=== PATIENT | male | born 1960 | race Caucasian/White ===

== ENCOUNTER 2017-07-20 07:51 | Emergency (ER) | payer OTHER ==
[2017-07-20 08:00] VITALS: BP 129/53
--- NOTE | 2017-07-20 09:07 | UC ---
Respiratory Complaint HPI - HPI Summary HPI Summary: 2-3 WEEKS OF COUGH, CONGESTION, ST, SINUS PRESSURE AND ARNOLD. PT DENIES FEVER. NO EAR PAIN, N/V/D. - History of Current Complaint Chief Complaint: UCGeneralIllness Stated Complaint: COUGH,ST,COLD Time Seen by Provider: 07/20/17 08:54 Hx Obtained From: Patient Onset/Duration: Gradual Onset, Lasting Weeks, Still Present Timing: Constant Severity Initially: Moderate Severity Currently: Moderate Pain Intensity: 5 Pain Scale Used: 0-10 Numeric Character: Cough: Productive Aggravating Factors: Nothing Alleviating Factors: Nothing Associated Signs And Symptoms: Positive: URI, Nasal Congestion, Sinus Discomfort - Allergies/Home Medications Allergies/Adverse Reactions: Allergies Allergy/AdvReac Type Severity Reaction Status Date / Time Celecoxib [From Celebrex] Allergy Intermediate Rash And Verified 07/20/17 08:01 Itching PMH/Surg Hx/FS Hx/Imm Hx Previously Healthy: Yes - Surgical History Surgical History: Yes Surgery Procedure, Year, and Place: ACL REPLACEMENT ON R KNEE 2009,. Rt CLAVICLE ORIF WITH PLATE -FRACTURE. [facility] 2013. RIGHT WRIST CARPAL TUNNEL. - Family History Known Family History: Negative: Hypertension - Social History Alcohol Use: Rare Alcohol Amount: 2 BEERS PER WEEK Substance Use Type: None Smoking Status (MU): Never Smoked Tobacco - Immunization History Most Recent Influenza Vaccination: NONE Most Recent Tetanus Shot: UNKNOWN Most Recent Pneumonia Vaccination: NONE Review of Systems Constitutional: Fatigue ENT: Sore Throat, Nasal Discharge Respiratory: Cough Cardiovascular: Negative Gastrointestinal: Negative Neurological: Headache All Other Systems Reviewed And Are Negative: Yes Physical Exam Triage Information Reviewed: Yes Appearance: Well-Appearing, No Pain Distress, Well-Nourished Vital Signs: Initial Vital Signs Temp 97.7 F 07/20/17 07:54 Pulse 68 07/20/17 07:54 Resp 16 07/20/17 07:54 BP 129/53 07/20/17 07:54 Pulse Ox 100 07/20/17 07:54 Vital Signs Reviewed: Yes Eyes: Positive: Conjunctiva Clear ENT: Positive: Hearing grossly normal, Pharynx normal, Nasal congestion, TMs normal Neck: Positive: Supple, Nontender, No Lymphadenopathy Respiratory Exam: Normal Cardiovascular Exam: Normal Abdomen Description: Positive: Soft Musculoskeletal: Positive: No Edema Neurological: Positive: Alert Psychological: Positive: Age Appropriate Behavior Skin: Negative: rashes UC Diagnostic Evaluation - Laboratory O2 Sat by Pulse Oximetry: 100 Respiratory Course/Dx - Differential Dx/Diagnosis Provider Diagnoses: ACUTE SINUSITIS Discharge - Discharge Plan Condition: Stable Disposition: HOME Prescriptions: Amoxicillin/Clavulanate TAB* [Augmentin TAB 875*] 875 mg PO BID #20 tab predniSONE TAB* [Deltasone TAB*] 40 mg PO DAILY #10 tab Patient Education Materials: Sinusitis (ED) Referrals: Arun Moreno MD [Primary Care Provider] - If Needed Additional Instructions: YOUR SYMPTOMS MAY BE VIRALLY MEDIATED BUT GIVEN THE LENGTH OF TIME YOU HAVE BEEN ILL WE WILL COVER YOU WITH ANTIBIOTICS. BE SURE TO TAKE IT FOR THE FULL COURSE. REST, HYDRATE, OTC MEDS NEEDED. WILL ALSO TREAT WITH PREDNISONE TO HELP WITH AIRWAY INFLAMMATION. SEEK FOLLOW-UP WITH YOUR PCP IF YOU ARE NOT IMPROVING OVER THE NEXT 1-2 WEEKS. TRY OTC AFRIN FOR NASAL CONGESTION. OKAY TO USE 2-3 SPRAYS IN EACH NOSTRIL UP TO 2 TIMES DAILY. DO NOT USE FOR MORE THAN 3-4 CONSECUTIVE DAYS TO PREVENT DEVELOPING REBOUND CONGESTION.
== END 2017-07-20 09:16 | disposition home or self-care (01) ==
LOC: UCEAST 07:51
DX: J01.90 Acute sinusitis, unspecified (principal); Z88.8 Allergy status to other drugs, medicaments and biological substances
CPT/HCPCS: 99212; G0463

== ENCOUNTER 2019-05-18 10:33 | Emergency (ER) | payer OTHER ==
[2019-05-18 10:49] VITALS: BP 151/76
--- NOTE | 2019-05-18 11:19 | UC ---
Back Pain HPI - HPI Summary HPI Summary: 58-year-old male presents with complaints of left lower back pain. States that 2 weeks ago he was installing some carpet and later that evening he noticed some left lower back pain that radiated down into his buttocks. States pain lasted for a few days and then improved. 5 days ago he was attempting to climb a ladder to do some painting and he slipped off the bottom rung and fell backwards landing on his butt. He noted pain in his left lower back immediately after the injury and states that it has been persistent since that time. Pain is now occasionally radiating down into his hip and lateral thigh. He has been taking ibuprofen with little relief in his symptoms. Denies weakness, numbness, tingling of the lower extremities, or loss of bowel or bladder control. - History of Current Complaint Chief Complaint: UCBackPain Stated Complaint: BACK PAIN Time Seen by Provider: 05/18/19 10:56 Hx Obtained From: Patient Pain Intensity: 7 - Allergies/Home Medications Allergies/Adverse Reactions: Allergies Allergy/AdvReac Type Severity Reaction Status Date / Time celecoxib [From Celebrex] Allergy Rash And Verified 05/18/19 10:49 Itching Home Medications: Home Medications Ibuprofen 800 mg PO PRN 05/18/19 [History] PMH/Surg Hx/FS Hx/Imm Hx Previously Healthy: Yes - Denies significant PMH - Surgical History Surgical History: Yes Surgery Procedure, Year, and Place: ACL REPLACEMENT ON R KNEE 2009,. Rt CLAVICLE ORIF WITH PLATE -FRACTURE. [facility] 2012. RIGHT WRIST CARPAL TUNNEL. RIGHT ANKLE - Family History Known Family History: Positive: Non-Contributory - Social History Occupation: Employed Full-time Lives: With Family Alcohol Use: Occasionally Alcohol Amount: 2 BEERS PER WEEK Substance Use Type: None Smoking Status (MU): Never Smoked Tobacco - Immunization History Most Recent Influenza Vaccination: NONE Most Recent Tetanus Shot: UNKNOWN Most Recent Pneumonia Vaccination: NONE Review of Systems All Other Systems Reviewed And Are Negative: Yes Constitutional: Negative: Fever, Chills Respiratory: Positive: Negative Cardiovascular: Positive: Negative Gastrointestinal: Positive: Negative Genitourinary: Positive: Negative Motor: Negative: Weakness Neurovascular: Negative: Decreased Sensation Musculoskeletal: Positive: Other: - See HPI Neurological: Negative: Weakness, Paresthesia, Numbness Is Patient Immunocompromised?: No Physical Exam - Summary Physical Exam Summary: GENERAL APPEARANCE: Well developed, well nourished, alert and cooperative, and appears to be in no acute distress. CARDIAC: Normal S1 and S2. No S3, S4 or murmurs. Rhythm is regular. There is no peripheral edema, cyanosis or pallor. Extremities are warm and well perfused. Capillary refill is less than 2 seconds. Peripheral pulses intact. LUNGS: Clear to auscultation without rales, rhonchi, wheezing or diminished breath sounds. ABDOMEN: Positive bowel sounds. Soft, nondistended, nontender. No guarding or rebound. No masses or hepatosplenomegally. MUSKULOSKELETAL: ROM intact to all extremities. No joint erythema or tenderness. Normal muscular development. Normal gait. BACK: Examination of the spine reveals no mid spinal deformity or tenderness, No soft tissue tenderness, or muscular spasm. NEUROLOGICAL: Strength and sensation symmetric to lower extremities. SKIN: Skin normal color, texture and turgor with no lesions or eruptions. Triage Information Reviewed: Yes Vital Signs: Initial Vital Signs Temp 98.6 F 05/18/19 10:41 Pulse 72 05/18/19 10:41 Resp 18 05/18/19 10:41 BP 151/76 05/18/19 10:41 Pulse Ox 99 05/18/19 10:41 Vital Signs Reviewed: Yes Images Head: 1 - Superficial 2 cm linear scalp laceration within the hairline Diagnostics - Radiology No standard instances Radiology Interpretation Completed By: Radiologist Summary of Radiographic Findings: Order Information: SP LUMBARSACRAL 4+ VWS. COMPARISON: Comparison is made with a prior MRI of the lumbar spine from October 25, 2015. TECHNIQUE: 5 views of the lumbar spine were obtained including lateral, oblique, AP and a coned-down lateral view of the lumbar sacral junction. FINDINGS: The vertebra are in normal alignment. No fracture is seen. There is mild diffuse degenerative disc disease. IMPRESSION: NO EVIDENCE FOR FRACTURE. Back Pain Course/Dx - Course Course Of Treatment: 58-year-old male presents with complaints of left lower back pain. States that 2 weeks ago he was installing some carpet and later that evening he noticed some left lower back pain that radiated down into his buttocks. States pain lasted for a few days and then improved. 5 days ago he was attempting to climb a ladder to do some painting and he slipped off the bottom rung and fell backwards landing on his butt. He noted pain in his left lower back immediately after the injury and states that it has been persistent since that time. Pain is now occasionally radiating down into his hip and lateral thigh. He has been taking ibuprofen with little relief in his symptoms. Denies weakness, numbness, tingling of the lower extremities, or loss of bowel or bladder control. Afebrile. Hypertensive otherwise vital signs stable. On exam patient had no midline or paraspinous soft tissue tenderness with palpation. Strength and sensation were intact to the lower extremities. Gait was normal. Remainder of exam was unremarkable. Because of the history of fall with axilla injury a lumbosacral x-ray was obtained and no acute fracture was identified. Results were reviewed with the patient. Recommending conservative treatment for low back pain including NSAIDs, cyclobenzaprine every 8 hours when necessary, and cold and/or heat therapy. He is to follow-up with his primary care provider in 5-7 days if symptoms are not improving. Anticipatory guidance and warning symptoms were reviewed with the patient. Verbalizes understanding and agrees with plan of care. - Differential Dx/Diagnosis Differential Diagnosis/HQI/PQRI: Herniated Disc, Strain Provider Diagnosis: Head injury Discharge ED - Sign-Out/Discharge Documenting (check all that apply): Patient Departure All imaging exams completed and their final reports reviewed: No Studies - Discharge Plan Condition: Stable Disposition: HOME Prescriptions: Cyclobenzaprine TAB* [Flexeril 10 MG TAB*] 10 mg PO TID PRN #21 tab PRN Reason: Spasms - Back Patient Education Materials: Acute Low Back Pain (ED) Referrals: Arun Moreno MD [Primary Care Provider] - 5 Days Additional Instructions: The x-ray of your spine performed in the clinic today showed no evidence of a fracture. Rest as much as possible. It is important to stay as active as possible but you should avoid strenuous activity of any activity that causes pain. Apply ice, heat, or alternate ice then heat to the affected area for 15-20 minutes at least 4 times a day. Take acetaminophen ibuprofen (Advil, Motrin) according to directions as needed for pain. Take cyclobenzaprine 10 mg 1 tab every 8 hours as needed for severe pain or spasm. This medication will cause drowsiness so do not take and drive or operate machinery. Follow up with her primary care provider in 7 days if symptoms do not improve. Seek immediate medical attention if you have severe pain not managed with pain medication, you are unable to walk or bear any weight, develop numbness, tingling, or weakness in the lower extremities, lose control of your bowel of bladder, or have any worsening of symptoms. - Billing Disposition and Condition Condition: STABLE Disposition: Home
== END 2019-05-18 12:33 | disposition home or self-care (01) ==
LOC: UCEAST 10:33
DX: S09.90XA Unspecified injury of head, initial encounter (principal); S01.01XA Laceration without foreign body of scalp, initial encounter; Z88.8 Allergy status to other drugs, medicaments and biological substances; W11.XXXA Fall on and from ladder, initial encounter; Y92.9 Unspecified place or not applicable
CPT/HCPCS: 72110; 99212; G0463

== ENCOUNTER 2019-06-05 12:08 | Emergency (ER) | payer OTHER ==
--- NOTE | 2019-06-05 12:35 | ED ---
Palpitations / Dysrhythmia - HPI Summary HPI Summary: This pt is a 58 y/o male presenting to [facility] c/o irregular heart beat since yesterday. Pt reports he usually has episodes of heart palpitations where his heart misses a beat for 2 seconds but then "takes off again". He notes he usually has 8-10 of these episodes a day but yesterday these episodes were more frequent, every 30 seconds. This morning he reports his heart rate was about 80 bpm, which is more than normal for him. He also states he was at work today at his desk when his heart suddenly "stopped" for a couple of seconds and felt dizzy. Pt notes his heart then began beating again and his dizziness resolved on its own. Denies any associated pain. Denies vomiting, diarrhea, fever, SOB. He reports he had chest pain 2 days ago that is described as mild and located evenly over his whole chest. This chest pain episode lasted 30 seconds and denies any other episodes of chest pain since then. Pt states he has trouble sleeping and started to take Restoril 2 days ago. He also reports he was out of work for 2 weeks for a pinched nerve on his back and was taking Vicodin for 1 week. Allergic to Celebrex. Denies tobacco and drug use but does admit to occasional alcohol use. His PCP is Dr. Moreno. Medications reviewed. Allergies noted. - History of Current Complaint Chief Complaint: EDDysrhythmPalp Time Seen by Provider: 06/05/19 12:29 Hx Obtained From: Patient Onset/Duration: Lasting Hours, Still Present Severity Initially: Moderate Severity Currently: Mild Character: Irregular Aggravating: Nothing Alleviating: Nothing Associated Signs & Symptoms: Dizzy - Allergy/Home Medications Allergies/Adverse Reactions: Allergies Allergy/AdvReac Type Severity Reaction Status Date / Time celecoxib [From Celebrex] Allergy Rash And Verified 05/18/19 10:49 Itching Home Medications: Home Medications Temazepam CAP* [Restoril CAP*] 30 mg PO BEDTIME PRN 06/05/19 [History Confirmed 06/05/19] PMH/Surg Hx/FS Hx/Imm Hx Endocrine/Hematology History: Denies: Hx Diabetes, Hx Thyroid Disease Cardiovascular History: Reports: Other Cardiovascular Problems/Disorders - IRREG HEART BEAT Denies: Hx Congestive Heart Failure, Hx Hypertension, Hx Pacemaker/ICD Respiratory History: Denies: Hx Asthma, Hx Chronic Obstructive Pulmonary Disease (COPD), Hx Sleep Apnea GI History: Reports: Hx Gall Bladder Disease - CURRENT, Other GI Disorders - see above Denies: Hx Gastroesophageal Reflux Disease, Hx Irritable Bowel, Hx Jaundice, Hx Ulcer History: Denies: Hx Renal Disease Musculoskeletal History: Reports: Hx Arthritis - GENERALIZED, Hx Tendonitis - BILATERAL ARMS/HANDS Denies: Hx Rheumatoid Arthritis, Hx Osteoporosis Sensory History: Denies: Hx Contacts or Glasses - READERS ONLY, Hx Hearing Aid, Hx Hearing Problem - RINGING IN EARS Opthamlomology History: Denies: Hx Contacts or Glasses - READERS ONLY Neurological History: Denies: Hx Headaches, Hx Migraine, Hx Seizures Psychiatric History: Denies: Hx Anxiety, Hx Depression, Hx Panic Disorder - Surgical History Surgical History: Yes Surgery Procedure, Year, and Place: ACL REPLACEMENT ON R KNEE 2009,. Rt CLAVICLE ORIF WITH PLATE -FRACTURE. [place] [facility] 2013. RIGHT WRIST CARPAL TUNNEL. RIGHT ANKLE Hx Anesthesia Reactions: No Infectious Disease History: No Infectious Disease History: Denies: Hx Clostridium Difficile, Hx Hepatitis, Hx Human Immunodeficiency Virus (HIV), Hx of Known/Suspected MRSA, Hx Shingles, Hx Tuberculosis, Hx Known/ Suspected VRE, Hx Known/Suspected VRSA, History Other Infectious Disease, Traveled Outside the [place] in Last 30 Days - Family History Known Family History: Positive: Diabetes Family History: Arthritis. Cancer. 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 Negative: Chest Pain - denies any chest pain today Negative: Shortness Of Breath Negative: Vomiting, Diarrhea Neurological: Other - POSITIVE: dizziness All Other Systems Reviewed And Are Negative: Yes Physical Exam - Summary Physical Exam Summary: Constitutional: Well-developed, Well-nourished, Alert. (-) Distressed Skin: Warm, Dry HENT: Normocephalic; Atraumatic Eyes: Conjunctiva normal Neck: Musculoskeletal ROM normal neck. (-) JVD, (-) Stridor, (-) Tracheal deviation Cardio: Rhythm regular, rate normal, Heart sounds normal; Intact distal pulses; The pedal pulses are 2+ and symmetric. Radial pulses are 2+ and symmetric. (-) Murmur Pulmonary/Chest wall: Effort normal. (-) Respiratory distress, (-) Wheezes, (-) Rales Abd: Soft, (-) tenderness, (-) Distension, (-) Guarding, (-) Rebound Musculoskeletal: (-) Edema Lymph: (-) Cervical adenopathy Neuro: Alert, Oriented x3 Psych: Mood and affect Normal Triage Information Reviewed: Yes Vital Signs On Initial Exam: Initial Vitals Temp Pulse Resp BP Pulse Ox 97.4 F 86 16 139/90 100 06/05/19 12:09 06/05/19 12:09 06/05/19 12:09 06/05/19 12:09 06/05/19 12:09 Vital Signs Reviewed: Yes Procedures - Sedation Patient Received Moderate/Deep Sedation with Procedure: No Diagnostics - Vital Signs Vital Signs Temp Pulse Resp BP Pulse Ox 06/05/19 12:09 97.4 F 86 16 139/90 100 - Laboratory Result Diagrams: 06/05/19 12:20 06/05/19 12:21 Lab Statement: Any lab studies that have been ordered have been reviewed, and results considered in the medical decision making process. - EKG 12:08 Cardiac Rate: NL - at 74 bpm EKG Rhythm: Sinus Rhythm Summary of EKG Findings: EKG at 12:08 shows normal sinus rhythm at a rate of 74 bpm. Normal intervals. No STEMI. 12:42 Summary of EKG Findings: 1 minute rhythm strip shows no arrhythmia. Course/Dx - Course Course Of Treatment: Patient is here with periodic episodes of palpitations. Patient was overall asymptomatic here. Patient had no evidence of arrhythmia on EKG or rhythm sure. Patient did have occasional PVC on the monitor. Patient had a CBC, CMP, TSH, free T4, troponin which are all unremarkable. Patient was referred to Dr. Levy for Holter monitor. - Diagnoses Provider Diagnoses: Palpitations Discharge ED - Sign-Out/Discharge Documenting (check all that apply): Patient Departure - Discharge home - Discharge Plan Condition: Stable Disposition: HOME Patient Education Materials: Heart Palpitations (ED) Referrals: Arun Moreno MD [Primary Care Provider] - Rupal Levy MD [Medical Doctor] - Additional Instructions: PLEASE RETURN TO EMERGENCY DEPARTMENT FOR CHEST PAIN, TROUBLE BREATHING OR ANY OTHER CONCERNING SYMPTOMS. Please follow up with your primary care physician and Dr. Levy, general practitioner. Please make all follow-ups in 1-3 days unless I advise you otherwise. - Billing Disposition and Condition Condition: STABLE Disposition: Home - Attestation Statements Document Initiated by Clarisse: Yes Documenting Scribe: Yoselin Rubin Provider For Whom Scribe is Documenting (Include Credential): Aleksandr Hidalgo MD Scribe Attestation: I, Yoselin Rubin, scribed for Aleksandr Hidalgo MD on 06/05/19 at 1707. Scribe Documentation Reviewed: Yes Provider Attestation: The documentation as recorded by the Yoselin lam accurately reflects the service I personally performed and the decisions made by me, Aleksandr Hidalgo MD Status of Scribe Document: Viewed
[2019-06-05 12:39] LABS: INR 1.09 (0.82-1.09)
[2019-06-05 12:40] LABS: ABS Basophils 0.1 10^3/ul (0-0.2); ABS Eosinophils 0.2 10^3/ul (0-0.6); ABS Lymphocytes 2.3 10^3/ul (1.0-4.8); ABS Monocytes 0.6 10^3/ul (0-0.8); ABS Neutrophils 3.6 10^3/ul (1.5-7.7); Eosinophil % 2.3 %; Hematocrit 45 % (42-52); Hemoglobin 15.8 g/dL (14.0-18.0); Lymphocyte % 34.4 %; Mean Corpuscular HGB Conc 35 g/dL (31-36); Mean Corpuscular Hemoglobin 33 pg (27-31); Mean Corpuscular Volume 94 fL (80-94); Mean Platelet Volume 8.3 fL (7.4-10.4); Nucleated Red Blood Cells % 0.1; Platelet Count 197 10^3/uL (150-450); Red Blood Count 4.77 10^6 /uL (4.18-5.48); Red Cell Distribution Width 13 % (10-15); White Blood Count 6.7 10^3/uL (3.5-10.8)
[2019-06-05 12:52] LABS: Albumin 4.5 g/dL (3.2-5.2); Albumin/Globulin Ratio 1.6 (1-3); Calcium 9.4 mg/dL (8.6-10.3); EGFR African American 105.2 (>60); Globulin 2.8 g/dL (2-4); Potassium 3.3 mmol/L (3.5-5.0); Total Bilirubin 2.7 mg/dL (0.2-1.0); Total Protein 7.3 g/dL (6.4-8.9); Troponin I 0.01 ng/mL (<0.04)
[2019-06-05 14:29] LABS: TSH (Thyroid Stimulating Horm) 0.94 mcIU/mL (0.34-5.60)
[2019-06-05 14:31] LABS: Free T4 1.11 ng/dL (0.61-1.12)
[2019-06-05 15:01] VITALS: BP 127/86
== END 2019-06-05 15:00 | disposition home or self-care (01) ==
LOC: ED 12:08
DX: R00.2 Palpitations (principal); R42 Dizziness and giddiness; Z88.8 Allergy status to other drugs, medicaments and biological substances
CPT/HCPCS: 36415; 80053; 84439; 84443; 84484; 85025; 85610; 93005; 99282